=== PATIENT | female | born 1995 | race African-American/Black ===

== ENCOUNTER 2021-02-18 20:07 | Emergency (ER) | payer SELFPAY ==
[~2021-02-18] VITALS: Ht 165.1 cm; Wt 85.5 kg
[2021-02-18 20:19] VITALS: BP 128/68
--- NOTE | 2021-02-18 20:21 | NUR ---
UA CUP GIVEN IN TRIAGE.
[2021-02-18 20:47] LABS: MICROSCOPIC NOT IND
[2021-02-18 21:19] LABS: HCG UR SG 1.026 (1.003-1.030)
--- NOTE | 2021-02-18 21:25 | NUR ---
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 TO ROOM FROM LOBBY AT THIS TIME.
== END 2021-02-18 22:04 | disposition home or self-care (01) ==
LOC: ED 21:50
DX: R10.31 Right lower quadrant pain (principal); R11.0 Nausea; J45.909 Unspecified asthma, uncomplicated
CPT/HCPCS: 81003; 81025; 99283